=== PATIENT | female | born 1990 | race Caucasian/White ===

== ENCOUNTER 2021-09-09 21:11 | Inpatient (IN) | payer OTHER ==
[~2021-09-09] VITALS: Ht 160 cm; Wt 81.6 kg
[2021-09-09] MEDS ORDERED: PRENATAL + DHA1 EAC1 PO (21:52)
== END 2021-09-13 15:07 | disposition home or self-care (01) | DRG 807 ==
LOC: OBS/DEL 21:11 → LDR 09-10 10:48 → OBS/DEL 09-10 10:48 → OB/GYN 09-11 19:17
PROVIDERS: ADMIT Obstetrics & Gynecology Obstetrics; ATTEND Obstetrics & Gynecology Obstetrics
PROC: 4A1HXCZ Monitoring of Products of Conception, Cardiac Rate, External Approach (ICD-10-PCS; 2021-09-10)
PROC: 10E0XZZ Delivery of Products of Conception, External Approach (ICD-10-PCS; principal; 2021-09-11)
DX: O80 Encounter for full-term uncomplicated delivery (principal); Z37.0 Single live birth; Z3A.38 38 weeks gestation of pregnancy; Z20.822 Contact with and (suspected) exposure to COVID-19